=== PATIENT | female | born 1995 | race Caucasian/White ===

== ENCOUNTER 2018-09-15 16:40 | Observation (INO) | payer MEDICAID ==
[~2018-09-15] VITALS: Ht 162.6 cm; Wt 73.0 kg
[2018-09-15] MEDS ORDERED: PREN-145 OR (17:08)
[2018-09-15] MEDS ORDERED: FERR27TA2 PO (17:08)
== END 2018-09-15 19:09 | disposition home or self-care (01) | DRG 566 ==
LOC: LDRP 16:40
PROVIDERS: ADMIT Specialist; ATTEND Specialist
DX: O62.9 Abnormality of forces of labor, unspecified (principal); O26.893 Other specified pregnancy related conditions, third trimester; H53.8 Other visual disturbances; M54.9 Dorsalgia, unspecified; Z3A.28 28 weeks gestation of pregnancy
CPT/HCPCS: 59025; 81002; G0378

== ENCOUNTER 2018-11-04 15:20 | Observation (INO) | payer MEDICAID ==
[~2018-11-04 15:20] MED LIST: FERR27TA2 PO; PREN-145 OR
[2018-11-04] MEDS ORDERED: TERBUTALINE SULFATE 1 MG/ML 1ML VIAL SC ONE ×2 (15:54→16:00)
[2018-11-04] MEDS ORDERED: TERBUTALINE SULFATE 1 MG/ML 1ML VIAL SC SCH (17:15)
[2018-11-04] MEDS ORDERED: LACTATED RINGER'S 1,000 ML IV SCH (17:15)
== END 2018-11-04 17:50 | disposition home or self-care (01) | DRG 566 ==
LOC: LDRP 15:20
PROVIDERS: ADMIT Obstetrics & Gynecology; ATTEND Obstetrics & Gynecology
DX: O62.9 Abnormality of forces of labor, unspecified (principal); O21.2 Late vomiting of pregnancy; Z3A.35 35 weeks gestation of pregnancy
CPT/HCPCS: 59025; 76815; 81002; 96360; 96372; G0378; J3105

== ENCOUNTER 2018-11-13 | Observation (INO) | payer MEDICAID ==
[~2018-11-13] VITALS: Ht 162.6 cm; Wt 78.9 kg
[2018-11-13] MEDS ORDERED: PROMETHAZINE HCL 25 MG/ML 1ML IM ONE (01:15)
[2018-11-13] MEDS ORDERED: TERBUTALINE SULFATE 1 MG/ML 1ML VIAL SC ONE (02:04)
[2018-11-13] MEDS ORDERED: TERBUTALINE SULFATE 1 MG/ML 1ML VIAL SC SCH (02:15)
[2018-11-13] MEDS ORDERED: LACTATED RINGER'S 1,000 ML IV ONE (02:15)
[2018-11-13] MEDS ORDERED: NIFEdipine 10 MG CAP ONE (03:45)
[2018-11-13] MEDS ORDERED: NIFEdipine 10 MG CAP PO ONE (03:45)
== END 2018-11-13 05:10 | disposition home or self-care (01) | DRG 566 ==
LOC: LDRP
PROVIDERS: ADMIT Obstetrics & Gynecology; ATTEND Obstetrics & Gynecology
DX: O62.9 Abnormality of forces of labor, unspecified (principal); Z3A.37 37 weeks gestation of pregnancy
CPT/HCPCS: 59025; 76815; 81002; 96372; G0378; J2550

== ENCOUNTER 2018-11-23 12:25 | Observation (INO) | payer MEDICAID | END 2018-11-23 13:40 | disposition home or self-care (01) | DRG 566 | LOC: LDRP 12:25 | PROVIDERS: ADMIT Obstetrics & Gynecology; ATTEND Obstetrics & Gynecology | DX: O46.93 Antepartum hemorrhage, unspecified, third trimester (principal); O62.9 Abnormality of forces of labor, unspecified; Z3A.38 38 weeks gestation of pregnancy | CPT/HCPCS: 59025; 76815; 81002; G0378 ==

== ENCOUNTER → 2021-05-07 | Day surgery (SDC) | payer MEDICAID ==
[2021-05-02 12:42] LABS: Basophils # (auto) 0.1 10 ^3/uL (0-0.2); Basophils % (auto) 1.1 % (0.0-2.0); Eosinophils # (auto) 0.3 10 ^3/uL (0-0.8); Eosinophils % (auto) 5.4 % (0.0-7.0); Hematocrit 38.7 % (36.0-46.0); Hemoglobin 13.1 g/dL (12.2-16.2); Lymphocytes # (auto) 1.1 10 ^3/uL (0.4-5.4); Lymphocytes % (auto) 22.2 % (10.0-50.0); Mean Corpuscular Hemoglobin 28.4 pg (28.0-32.0); Mean Corpuscular Hgb Conc. 33.8 g/dL (32.0-36.0); Monocytes # (auto) 0.5 10 ^3/uL (0-1.3); Monocytes % (auto) 9.8 % (0.0-12.0); Neutrophils # (auto) 3.2 10 ^3/uL (1.6-8.6); Neutrophils % (auto) 61.5 % (37.0-80.0); Red Blood Cells 4.61 10^6/uL (4.0-5.20); Red Cell Distribution Width 13.8 % (11.8-14.3); White Blood Cell 5.1 10^3/uL (4.4-10.8)
[2021-05-02 12:49] LABS: Urine Bacteria FEW /hpf (None Seen); Urine Blood Negative /uL (Negative); Urine Mucus FEW (None Seen); Urine WBC <1 /hpf (0 - 5)
[2021-05-02 13:20] LABS: Calcium 8.8 mg/dL (8.5-10.1)
[2021-05-02 13:25] LABS: BUN/Creatinine Ratio 11.4; Bilirubin, Total 0.4 mg/dL (0.2-1.0); Total Protein 7.8 g/dL (6.4-8.2)
[~2021-05-07] VITALS: Ht 162.6 cm; Wt 76.2 kg
[~2021-05-07] MED LIST changes: -FERR27TA2 PO; +LIDOCAINE VISCOUS 2% 15ML UD ONE; +ONDANSETRON HCL 4 MG/2 ML VIAL IV ONE; +ONDANSETRON HCL 4 MG/2 ML VIAL ONE; -PREN-145 OR; +SODIUM CHLORIDE LOCK 10 ML ONE
[2021-05-07] MEDS: MIDAZOLAM HCL 5 MG/ML-1ML VIAL ONE ×2 (12:45→12:48)
[2021-05-07] MEDS: diphenhdrAMINE HCL 50 MG/1 ML VL ONE ×2 (12:48→12:51)
[2021-05-07] MEDS: fentaNYL CITRATE 100 MCG/2 ML VL ONE ×2 (12:48→12:52)
[2021-05-07 13:35] VITALS: BP 124/75
== END | disposition home or self-care (01) ==
LOC: GI 11:27
PROVIDERS: ATTEND Internal Medicine Gastroenterology
DX: R10.13 Epigastric pain (principal); K29.50 Unspecified chronic gastritis without bleeding; K31.89 Other diseases of stomach and duodenum; K44.9 Diaphragmatic hernia without obstruction or gangrene; K29.90 Gastroduodenitis, unspecified, without bleeding; K21.9 Gastro-esophageal reflux disease without esophagitis; Z91.041 Radiographic dye allergy status; Z20.822 Contact with and (suspected) exposure to COVID-19
CPT/HCPCS: 36415; 43239; 80053; 81001; 81025; 84702; 85025; J1200; J2250; J2405; J3010; J7030; U0003